=== PATIENT | female | born 1985 | race Caucasian/White ===

== ENCOUNTER 2017-08-22 09:04 | Observation (INO) | payer BC ==
[2017-08-22 10:38] VITALS: BP_SYST 119
== END 2017-08-22 12:50 | disposition home or self-care (01) ==
LOC: EDBD 09:04 → SPU 09:04
PROVIDERS: ADMIT Obstetrics & Gynecology; ATTEND Obstetrics & Gynecology
DX: O42.913 Preterm premature rupture of membranes, unspecified as to length of time between rupture and onset of labor, third trimester (principal); Z3A.38 38 weeks gestation of pregnancy
CPT/HCPCS: 59025; 81002; G0378

== ENCOUNTER 2017-08-26 11:30 | Inpatient (IN) | payer BC ==
[~2017-08-26] VITALS: Ht 152.4 cm; Wt 78.0 kg
[2017-08-26] MEDS ORDERED: LR 1,000 ML IV ONE (12:20)
[2017-08-26] MEDS ORDERED: LR 1,000 ML IV SCH (12:20)
[2017-08-26] MEDS ORDERED: OXYTOCIN/0.9 % SODIUM CHLORIDE 1,000 ML IV SCH (12:20)
[2017-08-26] MEDS ORDERED: AMPICILLIN SODIUM 2 GM in NS 100 ML IV ONE (12:30)
[2017-08-26] MEDS ORDERED: TERBUTALINE SULFATE 1 MG/ML VIAL SUBCUT ONE (12:30)
[2017-08-26] MEDS ORDERED: AMPICILLIN SODIUM 2 GM VIAL ONE (12:35)
[2017-08-26 13:04] LABS: MEAN CORPUSCULAR HEMOGLOBIN 30 pg (27-31); MEAN CORPUSCULAR HGB CONC 34 % (32-36)
[2017-08-26 13:24] LABS: BASOPHILS # (AUTO) 0.1 K/uL (0.0-0.2); BASOPHILS % (AUTO) 0.6 % (0.0-2.0); EOSINOPHILS # (AUTO) 0.1 K/uL (0.0-0.4); HEMATOCRIT 37.4 % (36-48); HEMOGLOBIN 12.9 g/dL (12.0-16.0); LYMPHOCYTES # (AUTO) 2.1 K/uL (1.0-5.5); LYMPHOCYTES % (AUTO) 15.9 % (20.5-51.5); MEAN CORPUSCULAR VOLUME 87 fL (79.0-98.0); MONOCYTES # (AUTO) 0.9 K/uL (0.0-1.0); MONOCYTES % (AUTO) 6.9 % (1.7-9.3); NEUTROPHILS # (AUTO) 10.2 K/uL (1.8-7.7); NEUTROPHILS % (AUTO) 75.6 % (40.0-70.0); RED BLOOD CELL COUNT(AUTO) 4.29 MIL/uL (4.2-6.2); WHITE BLOOD COUNT (AUTO) 13.4 K/uL (4.8-10.8)
[2017-08-26 13:25] LABS: PLATELET COUNT (AUTO) 280 K/uL (130-430); RED CELL DISTRIBUTION WIDTH 14.8 % (9.0-15.0)
[2017-08-26] MEDS ORDERED: fentaNYL CITRATE/PF 100 MCG/2 ML AMP ONE (14:28)
[2017-08-26] MEDS ORDERED: ROPIVACAINE 0.2% 100 ML ONE ×2 (14:28→21:48)
[2017-08-26] MEDS ORDERED: LR 500 ML IV ONE (14:59)
[2017-08-26] MEDS ORDERED: FENT2mCg/mL-ROPIVA0.2%/NS EPID 100 ML EP SCH (15:00)
[2017-08-26 15:16] VITALS: BP_SYST 128
[2017-08-26] MEDS: AMPICILLIN SODIUM 1 GM in NS 50 ML IV SCH ×2 (16:52→20:26)
[2017-08-27] MEDS: AMPICILLIN SODIUM 1 GM in NS 50 ML IV SCH (01:12)
[2017-08-27] MEDS ORDERED: OXYTOCIN/0.9 % SODIUM CHLORIDE 1,000 ML IV ONE (01:44)
[2017-08-27] MEDS ORDERED: OXYTOCIN/0.9 % SODIUM CHLORIDE 1,000 ML IV SCH (01:44)
[2017-08-27] MEDS ORDERED: ANUSOL 1 EA SUPP.RECT (PREPARATION H) RC PRN (01:45)
[2017-08-27] MEDS ORDERED: LANOLIN 7 GM OINT. TP PRN (01:45)
[2017-08-27] MEDS ORDERED: HYDROCORTISONE 0.5%, 28.35 GM TOPICAL CREAM TP PRN (01:45)
[2017-08-27] MEDS ORDERED: MEASLES,MUMPS&RUBELLA VACC/PF 12500 UNIT/0.5 ML VIAL SUBQ PRN (01:45)
[2017-08-27] MEDS ORDERED: METHYLERGONOVINE MALEATE 0.2 MG TABLET PO PRN (01:45)
[2017-08-27] MEDS ORDERED: DOCUSATE SODIUM 100 MG CAPSULE PO PRN (01:45)
[2017-08-27] MEDS ORDERED: OXYCODONE/ACETAMINOPHEN 5-325 TABLET PO PRN ×2 (01:45)
[2017-08-27] MEDS ORDERED: RHO(D) IMMUNE GLOBULIN/MALTOSE 1500 UNITS/1.3 ML (WINHRO) IM PRN (01:45)
[2017-08-27] MEDS ORDERED: SENNOSIDES/DOCUSATE SODIUM 1 TAB TABLET(SENOKOT-S) PO PRN (01:45)
[2017-08-27] MEDS ORDERED: WITCH HAZEL LEAF 1 MED.PAD MED.PAD TP PRN (01:45)
[2017-08-27] MEDS ORDERED: DERMOPLAST SPRAY TP PRN (01:45)
[2017-08-27] MEDS: IBUPROFEN 800 MG TABLET PO PRN ×3 (03:41→18:03)
[2017-08-27] MEDS ORDERED: MINERAL OIL 30 ML UDC ONE (06:48)
[2017-08-27] MEDS ORDERED: TEMAZEPAM 15 MG CAPSULE PO PRN (21:00)
[2017-08-28] MEDS: IBUPROFEN 800 MG TABLET PO PRN ×3 (00:37→11:43)
[2017-08-28 10:09] LABS: HEMATOCRIT 29.4 % (36-48); HEMOGLOBIN 10.1 g/dL (12.0-16.0)
== END 2017-08-28 11:50 | disposition home or self-care (01) | DRG 775 ==
LOC: SPU 11:30
PROVIDERS: ADMIT Obstetrics & Gynecology; ATTEND Obstetrics & Gynecology
PROC: 10E0XZZ Delivery of Products of Conception, External Approach (ICD-10-PCS; principal; 2017-08-27)
PROC: 3E0R3BZ Introduction of Anesthetic Agent into Spinal Canal, Percutaneous Approach (ICD-10-PCS; 2017-08-27)
PROC: 00HU33Z Insertion of Infusion Device into Spinal Canal, Percutaneous Approach (ICD-10-PCS; 2017-08-27)
DX: O80 Encounter for full-term uncomplicated delivery (principal); Z37.0 Single live birth; Z3A.39 39 weeks gestation of pregnancy
CPT/HCPCS: 36415; 81002-TC; 82962; 85018-TC; 85025; 86592; 86886; 86900; 86901; J0290; J2590; J2795; J3010; J7120